=== PATIENT | female | born 1930 | race Asian ===

== ENCOUNTER 2021-08-06 14:37 | Inpatient (IN) | payer OTHER ==
[2021-08-06] MEDS ORDERED: ARTIFICIAL TEARS (POLYVINYL ALCOHOL) OPTH DROPS OU PRN (14:58)
[2021-08-06] MEDS ORDERED: PATIENT'S OWN MEDICATION (NON-FORMULARY) (Multivitamin [Poly-Vitamin] 1 EACH Tab.Chew) PO SCH (15:00)
[2021-08-06] MEDS ORDERED: PIPERACILLIN/TAZOBACTAM 3.375 GM VIAL IVPB ONE (16:39)
[2021-08-06] MEDS ORDERED: DEXTROSE 5%-WATER - 50 ML IVPB ONE (16:39)
[2021-08-06] MEDS: MULTIVITAMINS (DAILY MVI) TABLET (FP) PO SCH (16:54)
[2021-08-06] MEDS: FOLIC ACID 1 MG TABLET (FP) PO SCH (16:54)
[2021-08-06] MEDS: PIPERACILLIN/TAZOB 3.375 GM 3.375 GM in DEXTROSE 5%-WATER - 50 ML IVPB SCH (17:40)
[2021-08-06] MEDS: FEBUXOSTAT 40 MG TAB PO SCH (17:41)
[2021-08-06] MEDS: LACTATED RINGERS SOLUTION 1,000 ML/1,000 ML INFUS.BAG IV SCH (18:11)
[2021-08-06 18:12] LABS: BASO % 0.5 % (0-2.0); HEMATOCRIT 28.9 % (32.4-45.2); HEMOGLOBIN 9.9 GM/dL (10.7-15.3); LYMPH % 33.3 % (8-40); MCH 32.8 pg (25.7-33.7); MCHC 34.3 g/dl (32.0-36.0); MEAN CELL VOLUME 95.8 fl (80-96); MEAN PLT VOLUME 7.6 fl (7.5-11.1); MONO % 12.4 % (3.8-10.2); NEUT % 51.8 % (42.8-82.8); PLATELET COUNT 287 10^3/uL (134-434); RBC 3.01 M/mm3 (3.60-5.2); RDW 17.1 % (11.6-15.6); WHITE BLOOD COUNT 9.9 K/mm3 (4.0-10.0)
[2021-08-06 18:22] LABS: INR 1.08 (0.83-1.09); PROTHROMBIN TIME (PATIENT) 12.6 SEC (9.7-13.0)
[2021-08-06 18:25] LABS: ACTIVATED PTT 27.7 SECONDS (25.2-36.5)
[2021-08-06 18:27] LABS: ALBUMIN 2.1 g/dl (3.4-5.0)
[2021-08-06 18:28] LABS: BLOOD UREA NITROGEN 10.5 mg/dL (7-18); MAGNESIUM 2.1 mg/dL (1.8-2.4)
[2021-08-06 18:30] LABS: PHOSPHOROUS 2.5 mg/dL (2.5-4.9)
[2021-08-06 18:31] LABS: CREATININE 0.9 mg/dL (0.55-1.3)
[2021-08-06 18:32] LABS: BILIRUBIN,TOTAL 0.2 mg/dL (0.2-1); TOT PROT 5.8 g/dl (6.4-8.2)
[2021-08-06] MEDS: MIRTAZAPINE 15 MG TABLET (FP) PO SCH (21:32)
[2021-08-06] MEDS: SENNOSIDES 8.6MG TABLET (FP) PO SCH (21:32)
[2021-08-07] MEDS ORDERED: DEXTROSE 5%-WATER - 50 ML IVPB ONE ×3 (02:45→17:48)
[2021-08-07] MEDS ORDERED: PIPERACILLIN/TAZOBACTAM 3.375 GM VIAL IVPB ONE ×3 (02:45→17:47)
[2021-08-07] MEDS: PIPERACILLIN/TAZOB 3.375 GM 3.375 GM in DEXTROSE 5%-WATER - 50 ML IVPB SCH ×3 (02:49→17:49)
[2021-08-07] MEDS: LEVOTHYROXINE NA 25 MCG TABLET (FP) PO SCH (06:33)
[2021-08-07] MEDS: LACTATED RINGERS SOLUTION 1,000 ML/1,000 ML INFUS.BAG IV SCH ×2 (08:35→21:48)
[2021-08-07] MEDS: MULTIVITAMINS (DAILY MVI) TABLET (FP) PO SCH (09:58)
[2021-08-07] MEDS: FOLIC ACID 1 MG TABLET (FP) PO SCH (09:58)
[2021-08-07] MEDS ORDERED: LOSARTAN POTASSIUM 50 MG TABLET PO SCH (10:00)
[2021-08-07] MEDS: ENOXAPARIN NA (PORCINE) 40 MG/0.4 ML DISP.SYRIN SQ SCH (10:01)
[2021-08-07] MEDS ORDERED: PT OWN MED DRAWER 7, Y5N ONE (10:03)
[2021-08-07] MEDS: FEBUXOSTAT 40 MG TAB PO SCH (10:09)
[2021-08-07] MEDS ORDERED: POTASSIUM CHLORIDE ORAL LIQUID 20 MEQ/15 ML PO ONE (10:57)
[2021-08-07] MEDS: MIRTAZAPINE 15 MG TABLET (FP) PO SCH (21:48)
[2021-08-07] MEDS: SENNOSIDES 8.6MG TABLET (FP) PO SCH (21:48)
[2021-08-08] MEDS ORDERED: DEXTROSE 5%-WATER - 50 ML IVPB ONE ×3 (02:00→17:32)
[2021-08-08] MEDS ORDERED: PIPERACILLIN/TAZOBACTAM 3.375 GM VIAL IVPB ONE ×3 (02:00→17:32)
[2021-08-08] MEDS: PIPERACILLIN/TAZOB 3.375 GM 3.375 GM in DEXTROSE 5%-WATER - 50 ML IVPB SCH ×3 (02:01→17:35)
[2021-08-08] MEDS: LACTATED RINGERS SOLUTION 1,000 ML/1,000 ML INFUS.BAG IV SCH ×3 (02:58→21:55)
[2021-08-08 06:13] LABS: EOS % 1.6 % (0-4.5); HEMATOCRIT 30.9 % (32.4-45.2); HEMOGLOBIN 10.4 GM/dL (10.7-15.3); LYMPH % 38.1 % (8-40); MCHC 33.6 g/dl (32.0-36.0); MEAN CELL VOLUME 95.4 fl (80-96); MEAN PLT VOLUME 7.5 fl (7.5-11.1); MONO % 10.9 % (3.8-10.2); NEUT % 48.4 % (42.8-82.8); PLATELET COUNT 289 10^3/uL (134-434); RBC 3.24 M/mm3 (3.60-5.2); WHITE BLOOD COUNT 11.7 K/mm3 (4.0-10.0)
[2021-08-08 06:23] LABS: CALCIUM 9.1 mg/dL (8.5-10.1); MAGNESIUM 1.8 mg/dL (1.8-2.4)
[2021-08-08 06:24] LABS: ALBUMIN 2.1 g/dl (3.4-5.0)
[2021-08-08 06:27] LABS: CREATININE 0.9 mg/dL (0.55-1.3); PHOSPHOROUS 2.3 mg/dL (2.5-4.9)
[2021-08-08 06:28] LABS: BILIRUBIN,TOTAL 0.6 mg/dL (0.2-1); TOT PROT 5.9 g/dl (6.4-8.2)
[2021-08-08] MEDS ORDERED: LIDOCAINE HCL 1%, 10 MG/ML (20ML VIAL) ONE (09:42)
[2021-08-08] MEDS ORDERED: PROPOFOL 20 ML ONE (09:46)
[2021-08-08] MEDS ORDERED: PROMETHAZINE HCL 25 MG/1 ML VIAL IVPUSH PRN (10:33)
[2021-08-08] MEDS ORDERED: ONDANSETRON 4 MG/2 ML VIAL IVPUSH PRN (10:33)
[2021-08-08] MEDS ORDERED: LACTATED RINGERS SOLUTION 1,000 ML IV SCH (10:45)
[2021-08-08] MEDS ORDERED: LIDOCAINE HCL 1%, 10 MG/ML (20ML VIAL) INF ONE ×2 (10:48)
[2021-08-08] MEDS ORDERED: NAPH,MB-DB/K PH,MBDB POWDER PACKET PO ONE (13:45)
[2021-08-08] MEDS ORDERED: PT OWN MED DRAWER 7, Y5N ONE (15:37)
[2021-08-08] MEDS: FOLIC ACID 1 MG TABLET (FP) PO SCH (15:39)
[2021-08-08] MEDS: LOSARTAN POTASSIUM 50 MG TABLET PO SCH (15:40)
[2021-08-08] MEDS: MULTIVITAMINS (DAILY MVI) TABLET (FP) PO SCH (15:41)
[2021-08-08] MEDS: FEBUXOSTAT 40 MG TAB PO SCH (15:41)
[2021-08-08] MEDS: LEVOTHYROXINE NA 25 MCG TABLET (FP) PO SCH (15:44)
[2021-08-08] MEDS ORDERED: ACETAMINOPHEN 1000 MG/100 ML VIAL IVPB ONE (17:58)
[2021-08-08] MEDS ORDERED: morphine SULFATE 4 MG/ML VIAL IVPUSH PRN (19:41)
[2021-08-08] MEDS ORDERED: ACETAMINOPHEN 1000 MG/100 ML VIAL IVPB PRN (19:41)
[2021-08-08] MEDS: MIRTAZAPINE 15 MG TABLET (FP) PO SCH (21:50)
[2021-08-08] MEDS: SENNOSIDES 8.6MG TABLET (FP) PO SCH (21:50)
[2021-08-09] MEDS ORDERED: DEXTROSE 5%-WATER - 50 ML IVPB ONE ×3 (01:35→17:56)
[2021-08-09] MEDS ORDERED: PIPERACILLIN/TAZOBACTAM 3.375 GM VIAL IVPB ONE ×3 (01:35→17:56)
[2021-08-09] MEDS: PIPERACILLIN/TAZOB 3.375 GM 3.375 GM in DEXTROSE 5%-WATER - 50 ML IVPB SCH ×3 (01:46→18:00)
[2021-08-09] MEDS: LEVOTHYROXINE NA 25 MCG TABLET (FP) PO SCH (06:32)
[2021-08-09 07:16] LABS: BASO % 0.5 % (0-2.0); EOS % 3.7 % (0-4.5); HEMATOCRIT 31.2 % (32.4-45.2); HEMOGLOBIN 10.5 GM/dL (10.7-15.3); LYMPH % 40.5 % (8-40); MCH 32.3 pg (25.7-33.7); MCHC 33.6 g/dl (32.0-36.0); MEAN CELL VOLUME 96.3 fl (80-96); MEAN PLT VOLUME 7.6 fl (7.5-11.1); MONO % 13.5 % (3.8-10.2); NEUT % 41.8 % (42.8-82.8); PLATELET COUNT 263 10^3/uL (134-434); RBC 3.24 M/mm3 (3.60-5.2); RDW 17.3 % (11.6-15.6); WHITE BLOOD COUNT 9.9 K/mm3 (4.0-10.0)
[2021-08-09 07:23] LABS: CALCIUM 9.2 mg/dL (8.5-10.1)
[2021-08-09 07:24] LABS: BLOOD UREA NITROGEN 7.8 mg/dL (7-18)
[2021-08-09] MEDS: LOSARTAN POTASSIUM 50 MG TABLET PO SCH (09:42)
[2021-08-09] MEDS: MULTIVITAMINS (DAILY MVI) TABLET (FP) PO SCH (09:42)
[2021-08-09] MEDS: FOLIC ACID 1 MG TABLET (FP) PO SCH (09:42)
[2021-08-09] MEDS ORDERED: PT OWN MED DRAWER 7, Y5N ONE ×2 (09:45→14:44)
[2021-08-09] MEDS: FEBUXOSTAT 40 MG TAB PO SCH (09:46)
[2021-08-09] MEDS ORDERED: METHOTREXATE 2.5 MG TABLET PO ONE (10:00)
[2021-08-09] MEDS: ENOXAPARIN NA (PORCINE) 40 MG/0.4 ML DISP.SYRIN SQ SCH (10:25)
[2021-08-09] MEDS ORDERED: valACYclovir HCL 1000 MG TABLET PO SCH (12:30)
[2021-08-09] MEDS: valACYclovir HCL 500 MG TABLET (FP) PO SCH ×2 (14:34→21:09)
[2021-08-09] MEDS: COLLAGENASE CLOSTRIDIUM HIST. 30 GRAMS TUBE TP SCH (18:14)
[2021-08-09] MEDS: MIRTAZAPINE 15 MG TABLET (FP) PO SCH (21:09)
[2021-08-09] MEDS: SENNOSIDES 8.6MG TABLET (FP) PO SCH (21:09)
[2021-08-10] MEDS ORDERED: PIPERACILLIN/TAZOBACTAM 3.375 GM VIAL IVPB ONE ×2 (02:00→08:47)
[2021-08-10] MEDS ORDERED: DEXTROSE 5%-WATER - 50 ML IVPB ONE ×2 (02:00→08:48)
[2021-08-10] MEDS: PIPERACILLIN/TAZOB 3.375 GM 3.375 GM in DEXTROSE 5%-WATER - 50 ML IVPB SCH ×3 (02:12→17:48)
[2021-08-10] MEDS: LEVOTHYROXINE NA 25 MCG TABLET (FP) PO SCH (06:15)
[2021-08-10] MEDS: LOSARTAN POTASSIUM 50 MG TABLET PO SCH (09:18)
[2021-08-10] MEDS: ENOXAPARIN NA (PORCINE) 40 MG/0.4 ML DISP.SYRIN SQ SCH (09:19)
[2021-08-10] MEDS: MULTIVITAMINS (DAILY MVI) TABLET (FP) PO SCH (09:19)
[2021-08-10] MEDS: FOLIC ACID 1 MG TABLET (FP) PO SCH (09:19)
[2021-08-10] MEDS: COLLAGENASE CLOSTRIDIUM HIST. 30 GRAMS TUBE TP SCH (10:14)
[2021-08-10] MEDS ORDERED: PT OWN MED DRAWER 7, Y5N ONE (10:16)
[2021-08-10] MEDS: valACYclovir HCL 500 MG TABLET (FP) PO SCH (10:16)
[2021-08-10] MEDS: FEBUXOSTAT 40 MG TAB PO SCH (10:17)
[2021-08-10 11:51] VITALS: PULSE 100; TEMP 97.8
[2021-08-10 12:08] VITALS: BP 105/53
[2021-08-10 12:43] VITALS: BMI 25.5
[2021-08-10] MEDS ORDERED: AMINO ACIDS/PROTEIN HYDROLYS 30 ML LIQUID.PKT PO SCH (17:30)
[2021-08-10] MEDS ORDERED: ASCORBIC ACID 250 MG TABLET (FP) PO SCH (22:00)
[2021-08-11] MEDS ORDERED: ZINC SULFATE 220 MG CAPSULE (FP) PO SCH (10:00)
== END 2021-08-10 18:00 | disposition home or self-care (01) | DRG 570 ==
LOC: JICU 14:37
PROVIDERS: ADMIT Internal Medicine; ATTEND Internal Medicine
PROC: 0JB70ZZ Excision of Back Subcutaneous Tissue and Fascia, Open Approach (ICD-10-PCS; principal; 2021-08-08 10:29)
DX: L89.224 Pressure ulcer of left hip, stage 4 (principal); J18.9 Pneumonia, unspecified organism; R53.2 Functional quadriplegia; I10 Essential (primary) hypertension; E03.9 Hypothyroidism, unspecified; M06.9 Rheumatoid arthritis, unspecified; F03.90 Unspecified dementia, unspecified severity, without behavioral disturbance, psychotic disturbance, mood disturbance, and anxiety; Z99.3 Dependence on wheelchair
CPT/HCPCS: 36415; 71045-TC-FY; 80048; 80053; 83735; 84100; 84443; 85025; 85610; 85730; 86850; 86900; 86901; 87040; 93005; 93010; C9803; G0463-25; J0131; J8610; U0003; U0005